=== PATIENT | female | born 1970 | race Caucasian/White ===

== ENCOUNTER 2021-07-29 07:21 | Inpatient (IN) | payer BC, SELFPAY ==
[2021-07-26 09:18] LABS: EOSINOPHILS # (AUTO) 0.1 K/uL (0.0-0.4); EOSINOPHILS % (AUTO) 3.5 % (0.0-4.0); HEMATOCRIT 39.5 % (36-48); HEMOGLOBIN 13.1 g/dL (12.0-16.0); LYMPHOCYTES # (AUTO) 1.3 K/uL (1.0-5.5); LYMPHOCYTES % (AUTO) 32.6 % (20.5-51.5); MEAN CORPUSCULAR HEMOGLOBIN 29 pg (27-31); MEAN CORPUSCULAR HGB CONC 33 % (32-36); MEAN CORPUSCULAR VOLUME 89 fL (79.0-98.0); MONOCYTES # (AUTO) 0.2 K/uL (0.0-1.0); MONOCYTES % (AUTO) 5.5 % (1.7-9.3); NEUTROPHILS # (AUTO) 2.3 K/uL (1.8-7.7); NEUTROPHILS % (AUTO) 57.4 % (40.0-70.0); PLATELET COUNT (AUTO) 311 K/uL (130-430); RED BLOOD CELL COUNT(AUTO) 4.47 MIL/uL (4.2-6.2)
[2021-07-26 09:21] LABS: CALCIUM 9.5 mg/dL (8.4-11.0); CREATININE 0.64 mg/dL (0.55-1.30); POTASSIUM 3.7 mmol/L (3.5-5.1)
[2021-07-26 09:34] LABS: BILIRUBIN,URINE NEGATIVE (NEGATIVE); CLARITY/URINE CLEAR (CLEAR); COLOR,URINE YELLOW (YELLOW); GLUCOSE,URINE NEGATIVE (NEGATIVE); KETONES,URINE NEGATIVE (NEGATIVE); LEUKOCYTE ESTERASE ,URINE 1+ (NEGATIVE); NITRITE, URINE NEGATIVE (NEGATIVE); PROTEIN URINE NEGATIVE (NEGATIVE); UROBILINOGEN,URINE 0.2 (0.2-1.0)
[2021-07-26 09:36] LABS: PROTHROMBIN TIME 10.3 SECS (9.5-12.5)
[2021-07-26 10:47] LABS: BLOOD, URINE TRACE (NEGATIVE)
[2021-07-26 11:14] LABS: BACTERIA,URINE FEW /HPF (None Seen); RBC,URINE 0-3 /HPF (0-3)
[~2021-07-29] VITALS: Ht 162.6 cm; Wt 80.7 kg
[2021-07-29 07:29] LABS: HCG,QUAL RESULT NEGATIVE (NEGATIVE)
[2021-07-29] MEDS ORDERED: ASPI-1155 PO (07:51)
[2021-07-29] MEDS ORDERED: LOP600 PO (07:51)
[2021-07-29] MEDS ORDERED: ESCI20TA PO (07:51)
[2021-07-29] MEDS ORDERED: MIDAZOLAM HCL 5 MG/5 ML VIAL IVP ONE (09:57)
[2021-07-29] MEDS ORDERED: LR 1,000 ML IV.SOLN IV ONE (09:57)
[2021-07-29] MEDS ORDERED: SEVOFLURANE 15 MIN GAS INH ONE (09:57)
[2021-07-29] MEDS ORDERED: fentaNYL CITRATE/PF 100 MCG/2 ML AMP IVP ONE (09:57)
[2021-07-29] MEDS ORDERED: GLYCOPYRROLATE 0.2 MG/ML VIAL IJ ONE (09:57)
[2021-07-29] MEDS ORDERED: KETOROLAC TROMETHAMINE 30 MG VIAL IVP ONE (09:57)
[2021-07-29] MEDS ORDERED: TRANEXAMIC ACID 1,000 MG/10 ML VIAL IV ONE (09:57)
[2021-07-29] MEDS ORDERED: ONDANSETRON HCL 4 MG/2 ML VIAL IVP ONE (09:57)
[2021-07-29] MEDS ORDERED: DEXAMETHASONE SOD PHOSPHATE 4 MG/ML VIAL IVP ONE (09:57)
[2021-07-29] MEDS ORDERED: METOCLOPRAMIDE HCL 10 MG/2 ML VIAL IVP ONE (09:57)
[2021-07-29] MEDS ORDERED: ePHEDrine sulfate 50 MG/ML VIAL IVP ONE (09:57)
[2021-07-29] MEDS ORDERED: PHENYLEPHRINE HCL 10 MG/ML VIAL (NEOSYNEPHRINE) IV ONE (09:57)
[2021-07-29] MEDS ORDERED: BUPIVACAINE LIPOSOME/PF 266 MG/20 ML VIAL INFIL ONE (10:07)
[2021-07-29] MEDS ORDERED: NALOXONE HCL 0.4 MG/ML AMP (NARCAN) IVP PRN (12:00)
[2021-07-29] MEDS ORDERED: HYDROmorphone 1 MG/ML INJ. CARTRIDGE IVP PRN (12:00)
[2021-07-29] MEDS ORDERED: KETOROLAC TROMETHAMINE 30 MG VIAL IVP PRN (12:00)
[2021-07-29] MEDS ORDERED: MEPERIDINE HCL/PF 25 MG/ML DISP.SYRIN IVP PRN (12:00)
[2021-07-29] MEDS ORDERED: ONDANSETRON HCL 4 MG/2 ML VIAL IVP PRN (12:00)
[2021-07-29] MEDS ORDERED: LR 1,000 ML IV SCH (12:00)
[2021-07-29] MEDS ORDERED: KETOROLAC TROMETHAMINE 30 MG VIAL ONE (17:10)
[2021-07-29] MEDS ORDERED: HYDROmorphone 1 MG/ML INJ. CARTRIDGE ONE (17:30)
[2021-07-29 20:00] VITALS: BP_SYST 84
[2021-07-29] MEDS ORDERED: ONDANSETRON 4 MG ODT TAB PO PRN (21:00)
[2021-07-29] MEDS: DOCUSATE SODIUM 100 MG CAPSULE PO SCH (21:00)
[2021-07-29] MEDS ORDERED: HYDROcodone/ACETAMIN 5-325 MG TAB (NORCO/ VICODIN) PO PRN (21:00)
[2021-07-29 21:16] LABS: HEMATOCRIT 27.5 % (36-48); HEMOGLOBIN 8.9 g/dL (12.0-16.0); MEAN CORPUSCULAR HEMOGLOBIN 29 pg (27-31); MEAN CORPUSCULAR HGB CONC 32 % (32-36); MEAN CORPUSCULAR VOLUME 90 fL (79.0-98.0); PLATELET COUNT (AUTO) 388 K/uL (130-430); RED BLOOD CELL COUNT(AUTO) 3.06 MIL/uL (4.2-6.2); RED CELL DISTRIBUTION WIDTH 13.5 % (9.0-15.0); WHITE BLOOD COUNT (AUTO) 28.9 K/uL (4.8-10.8)
[2021-07-29 21:30] LABS: BAND % (MANUAL) 4 % (0-6); BASOPHILS % (MANUAL) 0 % (0-2); EOSINOPHILS % (MANUAL) 0 % (0-7); LYMPHOCYTES % (MANUAL) 0 % (20-46); MONOCYTES % (MANUAL) 4 % (0-11)
[2021-07-29] MEDS ORDERED: CEFAZOLIN 1 GM IVPB PREMIX 100 ML IV ONE (22:11)
[2021-07-29] MEDS: CEFAZOLIN 1 GM IVPB PREMIX 50 ML IV SCH (22:17)
[2021-07-29] MEDS: LR 1,000 ML IV SCH (22:18)
[2021-07-30] VITALS (7 sets, daily range): BP systolic 93–110
[2021-07-30] MEDS: CEFAZOLIN 1 GM IVPB PREMIX 50 ML IV SCH (05:37)
[2021-07-30] MEDS: LR 1,000 ML IV SCH ×3 (05:37→22:10)
[2021-07-30] MEDS: HYDROmorphone 2 MG/ML VIAL IVP PRN ×2 (05:46→13:43)
[2021-07-30 07:28] LABS: BASOPHILS % (AUTO) 0.1 % (0.0-2.0); HEMOGLOBIN 9.9 g/dL (12.0-16.0); LYMPHOCYTES # (AUTO) 0.8 K/uL (1.0-5.5); LYMPHOCYTES % (AUTO) 4.2 % (20.5-51.5); MEAN CORPUSCULAR HEMOGLOBIN 29 pg (27-31); MEAN CORPUSCULAR HGB CONC 33 % (32-36); MEAN CORPUSCULAR VOLUME 89 fL (79.0-98.0); MONOCYTES # (AUTO) 1.2 K/uL (0.0-1.0); MONOCYTES % (AUTO) 6.7 % (1.7-9.3); NEUTROPHILS # (AUTO) 16.1 K/uL (1.8-7.7); PLATELET COUNT (AUTO) 282 K/uL (130-430); RED BLOOD CELL COUNT(AUTO) 3.37 MIL/uL (4.2-6.2); WHITE BLOOD COUNT (AUTO) 18.1 K/uL (4.8-10.8)
[2021-07-30] MEDS ORDERED: ESCITALOPRAM OXALATE 10 MG TABLET PO SCH (09:00)
[2021-07-30] MEDS: ENOXAPARIN SODIUM 40 MG/0.4 ML SYRINGE SUBCUT SCH (13:38)
[2021-07-30] MEDS: GEMFIBROZIL 600 MG TABLET (LOPID) PO SCH (13:44)
[2021-07-30] MEDS: DOCUSATE SODIUM 100 MG CAPSULE PO SCH ×2 (13:44→21:09)
[2021-07-30] MEDS: CITALOPRAM HYDROBROMIDE 20 MG TABLET PO SCH (13:44)
[2021-07-31] MEDS: HYDROmorphone 2 MG/ML VIAL IVP PRN ×2 (00:16→06:34)
[2021-07-31 01:02] VITALS: BP_SYST 109
[2021-07-31] MEDS: LR 1,000 ML IV SCH ×3 (06:07→22:00)
[2021-07-31] MEDS: CITALOPRAM HYDROBROMIDE 20 MG TABLET PO SCH (10:18)
[2021-07-31] MEDS: DOCUSATE SODIUM 100 MG CAPSULE PO SCH ×2 (10:18→20:22)
[2021-07-31] MEDS: GEMFIBROZIL 600 MG TABLET (LOPID) PO SCH (10:18)
[2021-07-31] MEDS: ENOXAPARIN SODIUM 40 MG/0.4 ML SYRINGE SUBCUT SCH (10:21)
[2021-07-31] MEDS: HYDROcodone/ACETAMIN 5-325 MG TAB (NORCO/ VICODIN) PO PRN ×2 (10:26→21:09)
[2021-07-31 11:22] VITALS: BP_SYST 120
[2021-07-31 15:32] VITALS: BP_SYST 98
[2021-07-31 20:00] VITALS: BP_SYST 111
[2021-08-01 00:30] VITALS: BP_SYST 116
[2021-08-01] MEDS: HYDROcodone/ACETAMIN 5-325 MG TAB (NORCO/ VICODIN) PO PRN ×5 (01:58→21:29)
[2021-08-01] MEDS: LR 1,000 ML IV SCH ×2 (06:07→16:43)
[2021-08-01 08:00] VITALS: BP_SYST 99
[2021-08-01] MEDS: CITALOPRAM HYDROBROMIDE 20 MG TABLET PO SCH (08:06)
[2021-08-01] MEDS: DOCUSATE SODIUM 100 MG CAPSULE PO SCH ×2 (08:06→21:00)
[2021-08-01] MEDS: GEMFIBROZIL 600 MG TABLET (LOPID) PO SCH (08:06)
[2021-08-01] MEDS: ENOXAPARIN SODIUM 40 MG/0.4 ML SYRINGE SUBCUT SCH (08:07)
[2021-08-01 08:38] LABS: BASOPHILS % (AUTO) 0.3 % (0.0-2.0); EOSINOPHILS % (AUTO) 0.3 % (0.0-4.0); LYMPHOCYTES # (AUTO) 0.8 K/uL (1.0-5.5); LYMPHOCYTES % (AUTO) 9.8 % (20.5-51.5); MEAN CORPUSCULAR HEMOGLOBIN 30 pg (27-31); MEAN CORPUSCULAR HGB CONC 34 % (32-36); MEAN CORPUSCULAR VOLUME 88 fL (79.0-98.0); MONOCYTES # (AUTO) 0.4 K/uL (0.0-1.0); MONOCYTES % (AUTO) 5.1 % (1.7-9.3); NEUTROPHILS % (AUTO) 84.5 % (40.0-70.0); PLATELET COUNT (AUTO) 221 K/uL (130-430); RED CELL DISTRIBUTION WIDTH 13.6 % (9.0-15.0); WHITE BLOOD COUNT (AUTO) 8.3 K/uL (4.8-10.8)
[2021-08-01 08:50] LABS: RED BLOOD CELL COUNT(AUTO) 1.77 MIL/uL (4.2-6.2)
[2021-08-01 09:08] LABS: HEMATOCRIT 15.6 % (36-48); HEMOGLOBIN 5.3 g/dL (12.0-16.0)
[2021-08-01 13:30] VITALS: BP_SYST 106
[2021-08-01 16:34] VITALS: BP_SYST 115
[2021-08-01 17:01] LABS: BILIRUBIN,URINE NEGATIVE (NEGATIVE); CLARITY/URINE CLEAR (CLEAR); COLOR,URINE YELLOW (YELLOW); GLUCOSE,URINE NEGATIVE (NEGATIVE); KETONES,URINE NEGATIVE (NEGATIVE); LEUKOCYTE ESTERASE ,URINE 2+ (NEGATIVE); NITRITE, URINE NEGATIVE (NEGATIVE); PROTEIN URINE NEGATIVE (NEGATIVE); UROBILINOGEN,URINE 0.2 (0.2-1.0)
[2021-08-01 17:43] LABS: BLOOD, URINE TRACE (NEGATIVE)
[2021-08-01 17:57] LABS: BACTERIA,URINE None Seen /HPF (None Seen); RBC,URINE NONE SEEN /HPF (0-3)
[2021-08-01 18:44] LABS: BASOPHILS % (AUTO) 0.4 % (0.0-2.0); EOSINOPHILS # (AUTO) 0.1 K/uL (0.0-0.4); EOSINOPHILS % (AUTO) 0.6 % (0.0-4.0); LYMPHOCYTES # (AUTO) 1.2 K/uL (1.0-5.5); LYMPHOCYTES % (AUTO) 11.7 % (20.5-51.5); MEAN CORPUSCULAR HEMOGLOBIN 30 pg (27-31); MEAN CORPUSCULAR HGB CONC 35 % (32-36); MEAN CORPUSCULAR VOLUME 85 fL (79.0-98.0); MONOCYTES # (AUTO) 0.5 K/uL (0.0-1.0); MONOCYTES % (AUTO) 4.8 % (1.7-9.3); NEUTROPHILS # (AUTO) 8.2 K/uL (1.8-7.7); NEUTROPHILS % (AUTO) 82.5 % (40.0-70.0); PLATELET COUNT (AUTO) 250 K/uL (130-430); RED BLOOD CELL COUNT(AUTO) 2.16 MIL/uL (4.2-6.2); RED CELL DISTRIBUTION WIDTH 14.3 % (9.0-15.0); WHITE BLOOD COUNT (AUTO) 9.9 K/uL (4.8-10.8)
[2021-08-01 18:54] LABS: HEMATOCRIT 18.4 % (36-48); HEMOGLOBIN 6.4 g/dL (12.0-16.0)
[2021-08-01 20:00] VITALS: BP_SYST 132
[2021-08-02] MEDS: LR 1,000 ML IV SCH ×3 (01:03→17:00)
[2021-08-02 01:29] VITALS: BP_SYST 114
[2021-08-02] MEDS: HYDROcodone/ACETAMIN 5-325 MG TAB (NORCO/ VICODIN) PO PRN ×5 (02:45→23:22)
[2021-08-02] MEDS: DOCUSATE SODIUM 100 MG CAPSULE PO SCH ×2 (07:45→21:00)
[2021-08-02] MEDS: GEMFIBROZIL 600 MG TABLET (LOPID) PO SCH (07:45)
[2021-08-02] MEDS: CITALOPRAM HYDROBROMIDE 20 MG TABLET PO SCH (07:45)
[2021-08-02 07:55] LABS: HEMOGLOBIN 7.5 g/dL (12.0-16.0)
[2021-08-02 08:00] VITALS: BP_SYST 119
[2021-08-02] MEDS: ENOXAPARIN SODIUM 40 MG/0.4 ML SYRINGE SUBCUT SCH (08:15)
[2021-08-02 12:03] VITALS: BP_SYST 133
[2021-08-02 16:49] VITALS: BP_SYST 122
[2021-08-02 19:03] LABS: BASOPHILS % (AUTO) 0.4 % (0.0-2.0); EOSINOPHILS # (AUTO) 0.2 K/uL (0.0-0.4); EOSINOPHILS % (AUTO) 2.8 % (0.0-4.0); HEMATOCRIT 27.1 % (36-48); HEMOGLOBIN 9.3 g/dL (12.0-16.0); LYMPHOCYTES % (AUTO) 11.8 % (20.5-51.5); MEAN CORPUSCULAR HEMOGLOBIN 29 pg (27-31); MEAN CORPUSCULAR HGB CONC 34 % (32-36); MEAN CORPUSCULAR VOLUME 85 fL (79.0-98.0); MONOCYTES # (AUTO) 0.4 K/uL (0.0-1.0); MONOCYTES % (AUTO) 4.7 % (1.7-9.3); NEUTROPHILS # (AUTO) 6.5 K/uL (1.8-7.7); NEUTROPHILS % (AUTO) 80.3 % (40.0-70.0); PLATELET COUNT (AUTO) 307 K/uL (130-430); RED BLOOD CELL COUNT(AUTO) 3.21 MIL/uL (4.2-6.2); RED CELL DISTRIBUTION WIDTH 14.3 % (9.0-15.0); WHITE BLOOD COUNT (AUTO) 8.1 K/uL (4.8-10.8)
[2021-08-02 20:00] VITALS: BP_SYST 144
[2021-08-03] MEDS: LR 1,000 ML IV SCH (00:15)
[2021-08-03 00:45] VITALS: BP_SYST 151
[2021-08-03] MEDS: HYDROcodone/ACETAMIN 5-325 MG TAB (NORCO/ VICODIN) PO PRN ×6 (03:38→23:56)
[2021-08-03] MEDS: ENOXAPARIN SODIUM 40 MG/0.4 ML SYRINGE SUBCUT SCH (07:57)
[2021-08-03 08:00] VITALS: BP_SYST 138
[2021-08-03] MEDS: GEMFIBROZIL 600 MG TABLET (LOPID) PO SCH (08:01)
[2021-08-03] MEDS: DOCUSATE SODIUM 100 MG CAPSULE PO SCH ×2 (08:02→21:03)
[2021-08-03] MEDS: CITALOPRAM HYDROBROMIDE 20 MG TABLET PO SCH (08:02)
[2021-08-03] MEDS: POLYETHYLENE GLYCOL 3350, 17 GM/ POWD.PACK PO SCH (08:30)
[2021-08-03 12:45] VITALS: BP_SYST 142
[2021-08-03 17:01] VITALS: BP_SYST 139
[2021-08-03] MEDS: cephALEXin 500 MG CAPSULE PO SCH ×2 (17:23→23:57)
[2021-08-03 20:00] VITALS: BP_SYST 128
[2021-08-04] VITALS: BP_SYST 131
[2021-08-04 04:00] VITALS: BP_SYST 124
[2021-08-04] MEDS: HYDROcodone/ACETAMIN 5-325 MG TAB (NORCO/ VICODIN) PO PRN ×3 (04:23→12:35)
[2021-08-04] MEDS: cephALEXin 500 MG CAPSULE PO SCH ×2 (05:32→11:38)
[2021-08-04 07:30] VITALS: BP_SYST 136
[2021-08-04] MEDS: CITALOPRAM HYDROBROMIDE 20 MG TABLET PO SCH (07:33)
[2021-08-04] MEDS: POLYETHYLENE GLYCOL 3350, 17 GM/ POWD.PACK PO SCH (07:33)
[2021-08-04] MEDS: DOCUSATE SODIUM 100 MG CAPSULE PO SCH (07:33)
[2021-08-04] MEDS: GEMFIBROZIL 600 MG TABLET (LOPID) PO SCH (07:33)
[2021-08-04] MEDS: ENOXAPARIN SODIUM 40 MG/0.4 ML SYRINGE SUBCUT SCH (07:34)
[2021-08-04 07:52] LABS: HEMATOCRIT 30.1 % (36-48); HEMOGLOBIN 10.2 g/dL (12.0-16.0)
[2021-08-04 08:56] VITALS: BP_SYST 136
[2021-08-04 11:18] VITALS: BP_SYST 127
[2021-08-04 11:27] VITALS: BP_SYST 127; BP_SYST 136
[2021-08-04] MEDS ORDERED: CEPH250C PO (12:14)
[2021-08-04] MEDS ORDERED: HYDR-3921 PO (12:15)
== END 2021-08-04 15:00 | disposition home health service (06) | DRG 470 ==
LOC: SDS 07:21 → SMU 07:22 → SDS 18:50 → SMU 18:51
PROVIDERS: ADMIT Orthopaedic Surgery; ATTEND Orthopaedic Surgery
PROC: 0SRB0JA Replacement of Left Hip Joint with Synthetic Substitute, Uncemented, Open Approach (ICD-10-PCS; principal; 2021-07-29 10:55)
PROC: 30233N1 Transfusion of Nonautologous Red Blood Cells into Peripheral Vein, Percutaneous Approach (ICD-10-PCS; 2021-07-30)
DX: M16.12 Unilateral primary osteoarthritis, left hip (principal); M16.11 Unilateral primary osteoarthritis, right hip; Z20.822 Contact with and (suspected) exposure to COVID-19; E78.5 Hyperlipidemia, unspecified; Z90.710 Acquired absence of both cervix and uterus
CPT/HCPCS: 36415; 71046-TC; 72170-TC; 73502; 80048; 81000; 84703; 85007; 85018; 85025; 85027; 85610-TC; 85730-TC; 86886; 86900; 86901; 86920; 87081; 87086; 88304; 88311; 93005; 97110-GP; 97116-GP; 97530-GP; C1713; C1776; C9290; J0690; J1100; J1170; J1650; J1885; J2250; J2370; J2405; J2765; J3010; J3490; J7120; P9021; U0003

== ENCOUNTER 2022-03-06 09:53 | Emergency (ER) | payer BC ==
[~2022-03-06] VITALS: Ht 162.6 cm; Wt 86.2 kg
[~2022-03-06 09:53] MED LIST: ASPI-1155 PO; CEPH250C PO; ESCI20TA PO; HYDR-3921 PO; LOP600 PO
--- NOTE | 2022-03-06 10:52 | NUR ---
DR DIAZ AT BEDSIDE TO RE-EVALUATE.
[2022-03-06] MEDS ORDERED: IBUP-1969 PO (11:48)
[2022-03-06] MEDS ORDERED: HYDR-3927 PO (11:48)
[2022-03-06] MEDS ORDERED: IBUPROFEN 800 MG TABLET PO ONE (12:00)
[2022-03-06] MEDS ORDERED: HYDROcodone/ACETAMIN 10-325 MG TAB PO ONE (12:00)
--- NOTE | 2022-03-06 12:00 | NUR ---
Patient to ER bed H1 to gown for evaluation. Side rails up.
--- NOTE | 2022-03-06 12:05 | NUR ---
PT CAME IN FROM HOME FOR RIGHT HIP AND KNEE PAIN X 2 DAYS. PT IS USING WALKER TO AMBULATE. STATES SHE NEEDS SOME PAIN MANAGEMENT. PT IS AAOX4,VSS, WAITING OUTSIDE
--- NOTE | 2022-03-06 13:02 | NUR ---
Patient given written and verbal discharge instructions and verbalizes understanding. ER MD discussed with patient the results and treatment provided. Patient in stable condition. ID arm band removed. Rx of NORCO AND IBUPROFEN given. Patient educated on pain management and to follow up with PMD. Pain Scale 6/10 R HIP. Opportunity for questions provided and answered. Medication side effect fact sheet provided.
[2022-03-06 13:09] VITALS: BP_SYST 146
== END 2022-03-06 13:03 | disposition home or self-care (01) ==
LOC: SED 09:53
DX: M25.551 Pain in right hip (principal); Z79.82 Long term (current) use of aspirin; Z79.899 Other long term (current) drug therapy
CPT/HCPCS: 73502; 99283